=== PATIENT | male | born 1955 ===

== ENCOUNTER 2023-01-06 05:32 | Day surgery (SDC) | payer OTHER ==
[~2023-01-06] VITALS: Ht 175.3 cm; Wt 81.6 kg
[~2023-01-06 05:32] MED LIST: CLONAZEPAM1 MG PO; GLUMETZA500 MG PO; SYNTHROID50 MCG; SYNTHROID88 MCG; VYTORIN 10-201 EACH PO
== END 2023-01-06 10:00 | disposition home or self-care (01) ==
LOC: CIR.AMB 05:32
PROVIDERS: ATTEND Orthopaedic Surgery Hand Surgery
DX: M65.351 Trigger finger, right little finger (principal); Z20.822 Contact with and (suspected) exposure to COVID-19; E78.00 Pure hypercholesterolemia, unspecified; F17.210 Nicotine dependence, cigarettes, uncomplicated; F12.90 Cannabis use, unspecified, uncomplicated; E03.9 Hypothyroidism, unspecified; E11.9 Type 2 diabetes mellitus without complications; Z79.84 Long term (current) use of oral hypoglycemic drugs